=== PATIENT | male | born 1945 | race Native Hawaiian/Other Pacific Islander ===

== ENCOUNTER 2021-12-30 10:25 | Emergency (ER) | payer MEDICARE, OTHER ==
--- NOTE | 2021-12-30 11:05 | ERPHSYRPT ---
- History of Present Illness Time Seen by Provider: 12/30/21 10:50 Source: patient Exam Limitations: no limitations Patient Subjective Stated Complaint: Back pain Triage Nursing Assessment: Patient ambulated back to ED with cane. Patient requested to sit in bedside chair. Patient's skin pink, warm and dry. Patient A+O X3. Patient complains of left lower back pain that goes into left hip. Patient complains of pain 8/10. Patient denies falls or recent trauma. Physician History: 76 years old with multiple medical problems presented in the ER with chief complaint of left lower back pain for last 5 days. Patient report he has been moving heavy objects for the last few days and noticed gradually increasing pain in the left lower back, nonradiating, does have history of bilateral hip replacements and reports no pain with movements of hip. Pain is more with ambulation and better with resting. No loss of bowel or bladder control. Denies any midline back pain. No fall or trauma reported. Patient does have left lower Tylenol 3 and Percocet which she is taking for symptomatic relief. Timing/Duration: day(s) (5), intermittent, gradual onset Method of Injury: unknown Quality: sharp, aching Back Pain Location: paraspinous muscles Severity of Pain-Max: moderate Severity of Pain-Current: mild Modifying Factors: Improves With: immobilization. Worsens With: movement Associated Symptoms: lower back pain, No fever, No urinary incontinence, No loss of bowel control, No constipation, No nausea, No problems urinating, No light- headedness, No numbness in legs/feet, No weakness, No sensory/motor loss, No muscle spasms Previous symptoms: no prior history Allergies/Adverse Reactions: No Known Drug Allergies Allergy (Unverified 12/30/21 10:42) Hx Influenza Vaccination/Date Given: No Hx Pneumococcal Vaccination/Date Given: No Immunizations Up to Date: No Travel Risk - International Travel Have you traveled outside of the country in past 3 weeks: No - Coronavirus Screening Are you exhibiting any of the following symptoms?: No Close contact with a COVID-19 positive Pt in past 14-21 Days: No - Vaccine Status Have you recieved a Covid-19 vaccination: No - Review of Systems Constitutional: No Symptoms Ears, Nose, & Throat: No Symptoms Respiratory: No Symptoms Cardiac: No Symptoms Abdominal/Gastrointestinal: No Symptoms Genitourinary Symptoms: No Symptoms Musculoskeletal: Back Pain Skin: No Symptoms Neurological: No Symptoms Endocrine: No Symptoms Hematologic/Lymphatic: No Symptoms - Past Medical History Cardiac History: Arrhythmia, High Cholesterol, Hypertension Musculoskeletal History: No Pertinent History GI Medical History: No Pertinent History History: No Pertinent History Psycho-Social History: No Pertinent History Male Reproductive Disorders: No Pertinent History Other Medical History: afib - Past Surgical History Past Surgical History: Yes Neuro Surgical History: No Pertinent History Cardiac: CABG Respiratory: No Pertinent History Gastrointestinal: Cholecystectomy Genitourinary: No Pertinent History Musculoskeletal: Orthopedic Surgery Male Surgical History: No Pertinent History Other Surgical History: right hip replaced X 2. left hip replaced X 1. prostate cancer removed - Social History Smoking Status: Former smoker Exposure to second hand smoke: No Drug Use: none Patient Lives Alone: No - Nursing Vital Signs Nursing Vital Signs: Initial Vital Signs Temperature 97.9 F 12/30/21 10:43 Pulse Rate 74 12/30/21 10:43 Respiratory Rate 18 12/30/21 10:43 Blood Pressure 149/66 12/30/21 10:43 O2 Sat by Pulse Oximetry 95 12/30/21 10:43 Pain Scale Pain Intensity 8 - Physical Exam General Appearance: no apparent distress, alert Eye Exam: PERRL/EOMI Ears, Nose, Throat Exam: normal ENT inspection, pharynx normal Neck Exam: normal inspection, non-tender, full range of motion Respiratory Exam: normal breath sounds, lungs clear Cardiovascular Exam: regular rate/rhythm, normal heart sounds Gastrointestinal Exam: soft, No tenderness Back Exam: normal inspection, normal range of motion, muscle spasm, point tenderness (Left sacroiliac area), No CVA tenderness, No vertebral tenderness Extremity Exam: normal inspection, normal range of motion, pelvis stable Neurologic Exam: alert, oriented x 3, cooperative, 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 Negative neuro exam in lower extremities. Do not think needs work-up for cauda equina. Pain is more in the left sacroiliac area. Offered pain medication which she refused and does not want anything stronger but what he has at home. He is advised to take Tylenol 3 and do not mix with Percocet. Do not think needs imaging or any other work-up at present, recommended outpatient follow-up. Discussed signs symptoms of worsening guarding return to ER which he seems understanding. Counseled pt/family regarding: diagnosis, need for follow-up - Departure Departure Disposition: Home Clinical Impression: Low back strain Condition: Stable Critical Care Time: No Referrals: LORENA VALLES MD [ACTIVE STAFF] - Follow up/PCP as directed Instructions: Low Back Pain (DC) Additional Instructions: Take Tylenol as needed for pain. Avoid exertional activities., Intermittent ice application. Use cane/walker for ambulation all the time to avoid a fall. Return to ER for increasing pain, numbness tingling weakness of lower extremity, loss of bowel bladder/perineal sensations. Use lidocaine patch 12 hours on and 12 hours off daily. Prescriptions: lidocaine HCL [Lidaflex] 1 each TP DAILY 20 Days #20 patch
[2021-12-30 11:16] VITALS: BP 138/101; PULSE 72
[2021-12-30 20:51] VITALS: O2SAT 95
== END 2021-12-30 11:15 | disposition home or self-care (01) ==
LOC: ED 10:25
DX: S39.012A Strain of muscle, fascia and tendon of lower back, initial encounter (principal); X50.3XXA Overexertion from repetitive movements, initial encounter; X50.0XXA Overexertion from strenuous movement or load, initial encounter; E78.5 Hyperlipidemia, unspecified; I10 Essential (primary) hypertension; Z79.891 Long term (current) use of opiate analgesic; Z28.310 Unvaccinated for COVID-19
CPT/HCPCS: 99281

== ENCOUNTER 2025-01-25 08:44 | Emergency (ER) | payer MEDICARE, OTHER ==
[2025-01-25 08:58] VITALS: TEMP 97.3
--- NOTE | 2025-01-25 09:54 | ERPHSYRPT ---
- History of Present Illness Time Seen by Provider: 01/25/25 09:48 Source: patient Exam Limitations: no limitations Patient Subjective Stated Complaint: Pt was walking out his door and missed his step and fell down and into the house and a doggy ramp injuring his left shou lder and left lower ribs Triage Nursing Assessment: Pt brought to the ER by his , hypertensive, rates pain as 5-6/10 in his left shoulder, shoulder does look displaced, pulses normal, skin n/w/d, denies hitting head or LOC, left lower ribs painful, denies chest pain, denies shortness of breath Physician History: 79-year-old male presents to our ED with complaints of left shoulder and left rib pain. Patient states that approximately 4 AM patient stepped out of his home missed a step and fell onto his left shoulder. Patient states his elbow dug into his left rib area. Patient states he turned and missed stepped. The fall was not associated with any neuro or cardiovascular symptomology. No chest pain or shortness of breath. No nausea vomiting or diaphoresis. No BHT or LOC. No neck pain. Cervical spine cleared clinically. Patient complains of a localized pain to his left shoulder and left rib reproduced with movement of the left shoulder and palpation to the left rib. No diaphoresis. Patient's pain rated 5-6 out of 10. Patient denies syncope. However in light of patient's blood thinner and extensive cardiovascular history we advised a complete workup including a CT head. Patient declined the workup he was only agreeable to a CT of his chest and x-ray of his left shoulder. Patient declined pain medication. at bedside. They voiced no other complaints or concerns at this time. Portions of this note were created with voice recognition technology. There may be grammatical, spelling, punctuation or sound alike errors Timing/Duration: today Severity: moderate Modifying Factors: Improves With: movement Associated Symptoms: denies symptoms Allergies/Adverse Reactions: No Known Drug Allergies Allergy (Verified 01/25/25 08:58) Home Medications: Aspirin 81 mg PO DAILY 01/25/25 [History] Cholecalciferol (Vitamin D3) [Vitamin D3] 50 mcg PO BID 01/25/25 [History] Furosemide 20 mg [Lasix 20 mg] 20 mg PO DAILY 01/25/25 [History] Magnesium Oxide [Magnesium] 400 mg PO DAILY 01/25/25 [History] Olmesartan Medoxomil 20 mg [Benicar 20 MG] 20 mg PO DAILY 01/25/25 [History] Simvastatin 20Mg [Zocor 20Mg] 20 mg PO DAILY 01/25/25 [History] Spironolactone 25 mg [Aldactone 25 MG] 25 mg PO DAILY 01/25/25 [History] Vitamin B Complex [B Complex] 1 each PO BID 01/25/25 [History] Warfarin Sodium 5 mg [Coumadin] 5 mg PO DAILY 01/25/25 [History] Zinc Gluconate [Zinc] 50 mg PO BID 01/25/25 [History] carvediloL [Coreg] 25 mg PO BID 01/25/25 [History] Hx Influenza Vaccination/Date Given: No Hx Pneumococcal Vaccination/Date Given: No Travel Risk - International Travel Have you traveled outside of the country in past 3 weeks: No - Emerging Infectious Disease Are you exhibiting symptoms associated with any current EIDs: No - Review of Systems All Other Systems: Reviewed and Negative - Past Medical History Pertinent Past Medical History: Yes Cardiac History: Arrhythmia, High Cholesterol, Hypertension Musculoskeletal History: No Pertinent History GI Medical History: No Pertinent History History: No Pertinent History Psycho-Social History: No Pertinent History Male Reproductive Disorders: No Pertinent History Other Medical History: afib - Past Surgical History Past Surgical History: Yes Neuro Surgical History: No Pertinent History Cardiac: CABG Respiratory: No Pertinent History Gastrointestinal: Cholecystectomy Genitourinary: No Pertinent History Musculoskeletal: Orthopedic Surgery Male Surgical History: No Pertinent History Other Surgical History: right hip replaced X 2. left hip replaced X 1. prostate cancer removed - Social History Smoking Status: Former smoker Exposure to second hand smoke: No Drug Use: none - Social Determinants of Health Will the patient participate in the screening: Yes Do you worry about a steady place to live?: No Do you have any problems with any of the following?: No known problems In the past 12 months,have you had to go without utilities?: No Transportation Issues: No Has anyone in your support network made you feel unsafe?: No Have you or anyone in your house had to go w/o enough food: No - Nursing Vital Signs Nursing Vital Signs: Initial Vital Signs Temperature 97.3 F 01/25/25 08:54 Pulse Rate 70 10/28/25 08:54 Respiratory Rate 12 01/25/25 08:54 Blood Pressure 148/121 01/25/25 08:54 O2 Sat by Pulse Oximetry 98 01/25/25 08:54 Pain Scale Pain Intensity 5 - Physical Exam General Appearance: no apparent distress, alert Eye Exam: PERRL/EOMI, eyes nml inspection Ears, Nose, Throat Exam: normal ENT inspection, moist mucous membranes Neck Exam: normal inspection, full range of motion Respiratory Exam: normal breath sounds, lungs clear, airway intact, No respiratory distress Cardiovascular Exam: regular rate/rhythm, normal heart sounds, normal peripheral pulses Gastrointestinal/Abdomen Exam: soft, normal bowel sounds, No tenderness, No mass Back Exam: normal inspection, normal range of motion, No CVA tenderness, No vertebral tenderness Extremity Exam: normal inspection, normal range of motion, pelvis stable, pedal edema (1+ pitting edema bilateral lower extremity which patient states is chronic) Neurologic Exam: alert, oriented x 3, cooperative, normal mood/affect, nml cerebellar function, nml station & gait, sensation nml, No motor deficits Skin Exam: normal color, warm, dry, No rash Lymphatic Exam: No adenopathy SpO2 Interpretation: normal SpO2: 96 O2 Delivery: Room Air - Course Nursing assessment & vital signs reviewed: Yes EKG Interpreted by Me: RATE (81 ventricular paced rhythm. A-fib a flutter/on Coumadin. Biventricular paced rhythm) - Radiology Exams Shoulder X-ray Interpretation: Teleradiologist Report (3 view left shoulder demonstrates osteopenia, mild) - CT Exams Chest CT Interpretation: Tele-radiologist Report (Impression: Chronic findings including atelectasis/scarring, right base) Ordered Tests: Active Orders 24 hr Category Date Time Status EKG-ER Only STAT Care 01/25/25 09:14 Active CHEST WITHOUT CONTRAST [CT] Stat Exams 01/25/25 09:14 Completed SHOULDER Stat Exams 01/25/25 09:16 Completed - Progress Progress: improved Progress Note: 79-year-old male presents to our ED with complaints of left shoulder and left rib pain. Patient states that approximately 4 AM patient stepped out of his home missed a step and fell onto his left shoulder. Physical exam reveals some tenderness to palpation at the left GH joint. Patient having difficulty AB ducting and externally rotating his shoulder. Tenderness to palpation at left rib area. Left shoulder x-ray shows a high riding humerus may be secondary to a rotator cuff injury. CT chest shows chronic findings. No rib fractures obser mani. Patient placed in a left upper extremity sling. Ortho referral completed. They will follow-up tomorrow morning in the orthopedic clinic for further evaluation and treatment. X-ray evaluated and interpreted by Dr. Montanez. No fracture or dislocation. However this is my preliminary read. Formal read completed. No fracture or dislocation. However high riding humerus possible field representative of rotator cuff injury EKG biventricular paced rhythm. A-fib/a flutter. Rate 72. No previous EKGs on record for comparison Portions of this note were created with voice recognition technology. There may be grammatical, spelling, punctuation or sound alike errors History obtained from patient and his was at the bedside. Differential diagnosis includes chest pain, rib contusion, rib fracture Left shoulder rotator cuff tear, left shoulder fracture, left shoulder strain In light of patient's past medical history and follow-up patient was advised to complete a thorough workup. However patient declined. He declined CT head. He declined laboratory workup including troponin. Complexity of problem addressed is moderate acute complicated. No critical care time. Complexity of data reviewed and analyzed as moderate. Test ordered test reviewed results analyzed and correlated clinically with history and physical exam. Risk of complication at risk of morbidity/mortality of patient management is low. Vital stable. Time spent to discharge patient is approximately 15 minutes. Plan of care established for shared decision making. No social determinants of health present to impede follow-up. Portions of this note were created with voice recognition technology. There may be grammatical, spelling, punctuation or sound alike errors 01/25/25 11:29 Counseled pt/family regarding: diagnosis, need for follow-up, rad results - Departure Departure Disposition: Home Clinical Impression: Shoulder pain, Injury of left rotator cuff, Rib contusion Condition: Stable Critical Care Time: No Referrals: JOSEMANUEL ANDREA MD [Primary Care Provider, UNKNOWN] - Follow up/PCP as directed Additional Instructions: Discharge/Care Plan CAT RODRIGUEZ was seen on 01/25/25 in the Emergency Room. The patient was counseled regarding Diagnosis,Lab results, Imaging studies, need for follow up and when to return to the Emergency Room. Prescriptions given: Discharge Note I have spoken with the patient and/or caregivers. I have explained the patient's condition, diagnosis and treatment plan based on the information available to me at this time. I have answered the patient's and/or caregiver's questions and addressed any concerns. The patient and/or caregivers have as good understanding of the patient's diagnosis, condition and treatment plan as can be expected at this point. The vital signs have been stable. The patient's condition is stable and appropriate for discharge from the emergency department. The patient will pursue further outpatient evaluation with the primary care physician or other designated or consulting physician as outlined in the discharge instructions. The patient and/or caregivers are agreeable to this plan of care and follow-up instructions have been explained in detail. The patient and/or caregivers have received these instruction. The patient/and or caregivers are aware that any significant change in condition or worsening of symptoms should prompt an immediate return to this or the closest emergency department or call 911. Outpatient Orders: Ortho Referral Time Frame: 1 Day, Facility: [facility] Hosp, Location: [facility]
--- NOTE | 2025-01-25 10:08 | XRAY ---
Indication: Pain following fall. Comparison: None 3 view left shoulder demonstrates osteopenia, mild acromioclavicular/glenohumeral degenerative arthropathy with tiny spurring, and left AICD. High-riding humeral head commonly seen with rotator cuff tear. No other abnormalities.
[2025-01-25 10:21] VITALS: PULSE 72
--- NOTE | 2025-01-25 11:01 | XRAY ---
Indication: Rib pain following fall. Multiple contiguous axial images obtained through the chest without contrast. Comparison: None Lungs hyperinflated with mild scattered bibasilar subsegmental atelectasis/scarring and minimal right base calcified pleural plaquing. No suspicious pulmonary mass/nodule, infiltrate, effusion, or pneumothorax. Heart enlarged with CABG surgery and left AICD. Aorta is minimally arteriosclerotic without aneurysm. No pathologic mediastinal lymphadenopathy. Bony thorax intact with osteopenia and mild multilevel degenerative spondylosis. Limited upper abdomen demonstrates 7 mm nonobstructing right renal calculus and 4 cm wide epigastric ventral hernia defect with herniated mesenteric fat. Impression: Chronic findings including atelectasis/scarring, right base calcified pleural plaquing, cardiomegaly, arteriosclerotic disease, chronic bony findings, nonobstructing right renal calculus, and fatty ventral hernia. No acute findings on this noncontrast exam.
[2025-01-25 11:14] VITALS: BP 139/80; RESP 24
[2025-01-25 11:24] VITALS: O2SAT 96
== END 2025-01-25 11:55 | disposition home or self-care (01) ==
LOC: ED 08:44
DX: S46.002A Unspecified injury of muscle(s) and tendon(s) of the rotator cuff of left shoulder, initial encounter (principal); S20.212A Contusion of left front wall of thorax, initial encounter; W10.8XXA Fall (on) (from) other stairs and steps, initial encounter; Y92.007 Garden or yard of unspecified non-institutional (private) residence as the place of occurrence of the external cause; M25.512 Pain in left shoulder; I10 Essential (primary) hypertension; Z79.01 Long term (current) use of anticoagulants; Z79.899 Other long term (current) drug therapy